=== PATIENT | female | born 1935 | race Caucasian/White ===

== ENCOUNTER 2020-10-12 18:32 | Emergency (ER) | payer OTHER ==
[~2020-10-12] VITALS: Ht 154.9 cm; Wt 59.0 kg
[2020-10-12 18:50] VITALS: BP 166/77
== END 2020-10-12 20:43 | disposition home or self-care (01) ==
LOC: ER 18:32
DX: S02.2XXA Fracture of nasal bones, initial encounter for closed fracture (principal); E78.5 Hyperlipidemia, unspecified; I10 Essential (primary) hypertension; X58.XXXA Exposure to other specified factors, initial encounter; Y93.89 Activity, other specified; Y92.89 Other specified places as the place of occurrence of the external cause; Y99.8 Other external cause status
CPT/HCPCS: 70450; 70486; 72125

== ENCOUNTER 2024-05-13 13:35 | Inpatient (IN) | payer OTHER, MEDICAID ==
[~2024-05-13] VITALS: Ht 152.4 cm; Wt 51.1 kg
[~2024-05-13 13:35] MED LIST: AMLO1TAB23 PO; ATEN50TA PO; ATOR10TA52 PO; FLUO10TA18 PO; LATA0.008 EACHEYE; LEVO112T2 PO; LISI40TA16 PO; TRAZ-227 PO; VALA-30 PO
[2024-05-13 14:55] LABS: Mean Corpuscular Hemoglobin 32.2 pg (28.0-32.0); Mean Corpuscular Hgb Conc. 34.3 g/dL (32.0-36.0); Mean Corpuscular Volume 93.8 fL (80.0-100.0); Red Blood Cells 3.09 10^6/uL (4.0-5.20); Red Cell Distribution Width 16.6 % (11.8-14.3); White Blood Cell 6.1 10^3/uL (4.4-10.8)
[2024-05-13 15:04] LABS: Chloride 104 mmol/L (98-107); Sodium 138 mmol/L (136-145)
[2024-05-13 15:06] LABS: Band Neutrophils % (manual) 0; Basophils % (manual) 0 (0.0-2.0); Blast Cells 0; Eosinophils % (manual) 0 (0-7); Metamyelocytes % 0; Myelocytes % 0; Promyelocytes % 0; Reactive Lymphocytes 0
[2024-05-13 15:08] LABS: Anion Gap 6 (5-15); Carbon Dioxide 28 mmol/L (20-30); Potassium 4.4 mmol/L (3.5-5.1)
[2024-05-13 15:10] LABS: Glucose 99 mg/dL (74-106)
[2024-05-13 15:54] LABS: Lymphocytes % (manual) 46 (10.0-50.0)
[2024-05-13 15:55] LABS: BUN/Creatinine Ratio 33.3 (10.0-20.0); Blood Urea Nitrogen 36 mg/dL (9-23); Large Platelets FEW; Magnesium 2.3 mg/dL (1.6-2.6); Monocytes % (manual) 18 (0-12); Platelet Estimate Adequate
[2024-05-13] MEDS: SODIUM CHLORIDE 0.9% 1,000 ML IV SCH (18:15)
[2024-05-13] MEDS ORDERED: ONDANSETRON HCL 4 MG/2 ML VIAL IV PRN (18:15)
[2024-05-13] MEDS ORDERED: MORPHINE SULFATE INJ 2 MG/ml SYRG IV PRN ×2 (18:15)
[2024-05-13] MEDS ORDERED: NITROGLYCERIN 0.4 MG SL TAB SL PRN (18:15)
[2024-05-13] MEDS ORDERED: HYDROcodone-ACET 5/325MG TAB PO PRN (18:15)
[2024-05-13] MEDS ORDERED: DOCUSATE SOD 100 MG CAP PO PRN (18:15)
[2024-05-13 18:27] VITALS: PULSE 90; RESP 18; O2SAT 96
[2024-05-13] MEDS: ACETAMINOPHEN 325 MG TAB PO PRN (21:48)
[2024-05-13 23:30] VITALS: BP 129/64; PULSE 61; RESP 14; O2SAT 94
[2024-05-14] VITALS (11 sets, daily range): BP systolic 117–145; BP diastolic 53–72; PULSE 61–78; RESP 14–18; TEMP 97.8–98.3; O2SAT 91–98
[2024-05-14 03:28] LABS: Urine Bacteria FEW /hpf (None Seen); Urine Blood Negative /uL (Negative); Urine Clarity Clear (Clear); Urine Color Light-Yellow (Yellow); Urine Mucus FEW (None Seen); Urine Protein, UAD Negative (Negative); Urine Specific Gravity 1.014 (1.001-1.035); Urine Urobilinogen Normal (Negative); Urine WBC 14 /hpf (0 - 5); Urine pH 5.5 (5.0-9.0)
[2024-05-14 04:43] LABS: Hematocrit 26.5 % (36.0-46.0); Hemoglobin 9.1 g/dL (12.2-16.2); Mean Corpuscular Hemoglobin 32.4 pg (28.0-32.0); Mean Corpuscular Hgb Conc. 34.5 g/dL (32.0-36.0); Mean Corpuscular Volume 93.9 fL (80.0-100.0); Red Blood Cells 2.82 10^6/uL (4.0-5.20); Red Cell Distribution Width 16.8 % (11.8-14.3)
[2024-05-14 04:45] LABS: Basophils % (manual) 0 (0.0-2.0); Metamyelocytes % 0; Myelocytes % 0
[2024-05-14 04:46] LABS: Blast Cells 0; Promyelocytes % 0; Reactive Lymphocytes 0
[2024-05-14 04:51] LABS: Alanine Aminotransferase 19 U/L (7-40); Alkaline Phosphatase 120 U/L (46-116); Calcium 9.8 mg/dL (8.7-10.4); Carbon Dioxide 25 mmol/L (20-30); Chloride 104 mmol/L (98-107)
[2024-05-14 04:52] LABS: Albumin 3.1 g/dL (3.2-4.8); Anion Gap 7 (5-15); Aspartate Aminotransferase 18 U/L (13-40); BUN/Creatinine Ratio 36.4 (10.0-20.0); Bilirubin, Total 0.2 mg/dL (0.2-1.0); Blood Urea Nitrogen 32 mg/dL (9-23); Glucose 96 mg/dL (74-106); Potassium 3.9 mmol/L (3.5-5.1); Sodium 136 mmol/L (136-145); Total Protein 9.4 g/dL (5.7-8.2)
[2024-05-14] MEDS: LEVOTHYROXINE SODIUM 112 MCG TAB PO SCH (06:19)
[2024-05-14 07:54] LABS: Band Neutrophils % (manual) 1; Eosinophils % (manual) 1 (0-7); Lymphocytes % (manual) 45 (10.0-50.0); Monocytes % (manual) 14 (0-12)
[2024-05-14 07:55] LABS: Large Platelets FEW; Platelet Estimate Adequa
[2024-05-14] MEDS: amLODIPine BESYLATE 5 MG TAB PO SCH (10:28)
[2024-05-14] MEDS: ATENOLOL 25 MG TAB PO SCH (10:28)
[2024-05-14] MEDS: LISINOPRIL 20 MG TAB PO SCH (10:28)
[2024-05-14] MEDS: ENOXAPARIN SOD 30 MG/0.3 ML SYRINGE SC SCH (10:28)
[2024-05-14] MEDS: VALACYCLOVIR HCL 500 MG TAB PO SCH (10:29)
[2024-05-14] MEDS ORDERED: CEFD300C2 PO (15:58)
[2024-05-15] VITALS (9 sets, daily range): BP systolic 118–125; BP diastolic 50–68; PULSE 66–78; RESP 14–18; TEMP 36.8; O2SAT 90–98
== END 2024-05-15 19:30 | disposition home or self-care (01) | DRG 312 ==
LOC: ER 13:37 → TELE 18:19 → TELE-WESTW 05-14 22:52
PROVIDERS: ADMIT Internal Medicine; ATTEND Internal Medicine
DX: I95.1 Orthostatic hypotension (principal); N39.0 Urinary tract infection, site not specified; S59.901A Unspecified injury of right elbow, initial encounter; D64.9 Anemia, unspecified; E03.9 Hypothyroidism, unspecified; I10 Essential (primary) hypertension; J44.9 Chronic obstructive pulmonary disease, unspecified; F32.A Depression, unspecified; E78.5 Hyperlipidemia, unspecified; G90.9 Disorder of the autonomic nervous system, unspecified; G47.00 Insomnia, unspecified; M25.421 Effusion, right elbow; M70.21 Olecranon bursitis, right elbow; W18.39XA Other fall on same level, initial encounter; Z90.81 Acquired absence of spleen; Z90.710 Acquired absence of both cervix and uterus; Z90.49 Acquired absence of other specified parts of digestive tract; Z85.6 Personal history of leukemia; Y93.89 Activity, other specified; Y92.89 Other specified places as the place of occurrence of the external cause; Y99.8 Other external cause status
CPT/HCPCS: 36415; 70450; 73080; 80048; 80053; 81001; 82962; 83735; 85007; 85027; 93005; 93306; 93886; 96360; 97163; 99291; G0378

== ENCOUNTER 2024-05-18 15:45 | Emergency (ER) | payer OTHER, MEDICAID ==
[~2024-05-18] VITALS: Ht 160 cm; Wt 59.0 kg
[~2024-05-18 15:45] MED LIST changes: +CEFD300C2 PO
[2024-05-18 17:02] LABS: Hemoglobin 9.2 g/dL (12.2-16.2); Mean Corpuscular Hemoglobin 31.8 pg (28.0-32.0); Mean Corpuscular Volume 96.3 fL (80.0-100.0); Red Cell Distribution Width 16.8 % (11.8-14.3)
[2024-05-18 17:06] LABS: Band Neutrophils % (manual) 0; Basophils % (manual) 0 (0.0-2.0); Blast Cells 0; Metamyelocytes % 0; Myelocytes % 0; Promyelocytes % 0; Reactive Lymphocytes 0
[2024-05-18] MEDS: SODIUM CHLORIDE 0.9% 1,000 ML IV ONE (17:08)
[2024-05-18 17:15] LABS: Chloride 101 mmol/L (98-107); Sodium 133 mmol/L (136-145)
[2024-05-18 17:16] LABS: Calcium 9.7 mg/dL (8.7-10.4)
[2024-05-18 17:18] LABS: Anion Gap 9 (5-15); Carbon Dioxide 23 mmol/L (20-30); Potassium 5.1 mmol/L (3.5-5.1)
[2024-05-18 17:21] LABS: Glucose 106 mg/dL (74-106)
[2024-05-18 17:41] LABS: Anisocytosis Slight; Eosinophils % (manual) 1 (0-7); Giant Platelets Few; Lymphocytes % (manual) 23 (10.0-50.0); Macrocytosis Slight; Monocytes % (manual) 20 (0-12); Platelet Estimate Adequate
[2024-05-18 18:00] LABS: BUN/Creatinine Ratio 31.1 (10.0-20.0); Blood Urea Nitrogen 33 mg/dL (9-23)
[2024-05-18 20:00] VITALS: BP 122/60; PULSE 84; RESP 16; TEMP 98; O2SAT 94
== END 2024-05-18 20:20 | disposition home or self-care (01) ==
LOC: ER 15:45 → EDBD 15:45 → ER 20:20
DX: A41.9 Sepsis, unspecified organism (principal); E78.5 Hyperlipidemia, unspecified; I10 Essential (primary) hypertension; Z90.49 Acquired absence of other specified parts of digestive tract; Z90.710 Acquired absence of both cervix and uterus
CPT/HCPCS: 36415; 71045; 80048; 83605; 84484; 85007; 85027; 87040; 93005; 96360; 96361; 99285; J7030

== ENCOUNTER 2024-07-15 11:00 | Inpatient (IN) | payer OTHER, MEDICAID ==
[~2024-07-15] VITALS: Ht 160 cm; Wt 46.9 kg
[2024-07-15 11:54] LABS: Albumin 3.4 g/dL (3.2-4.8); Alkaline Phosphatase 115 U/L (46-116); Anion Gap 8 (5-15); Aspartate Aminotransferase 11 U/L (13-40); Bilirubin, Total 0.3 mg/dL (0.2-1.0); Blood Urea Nitrogen 23 mg/dL (9-23); Calcium 9.8 mg/dL (8.7-10.4); Carbon Dioxide 25 mmol/L (20-31); Chloride 108 mmol/L (98-107); Glucose 137 mg/dL (74-106); Sodium 141 mmol/L (136-145); Total Protein 9.6 g/dL (5.7-8.2)
[2024-07-15 11:55] LABS: Alanine Aminotransferase < 9 U/L (7-40)
[2024-07-15 12:01] VITALS: PULSE 67; RESP 23; O2SAT 99
[2024-07-15] MEDS: FUROSEMIDE 40 MG/4 ML VIAL IV ONE (12:05)
[2024-07-15 12:21] LABS: Hematocrit 27.6 % (36.0-46.0); Mean Corpuscular Hgb Conc. 32.6 g/dL (32.0-36.0); Mean Corpuscular Volume 95.1 fL (80.0-100.0); Platelet Count (auto) 264 10^3/uL (140-450); Red Cell Distribution Width 17.8 % (11.8-14.3); White Blood Cell 7.2 10^3/uL (4.4-10.8)
[2024-07-15 12:22] LABS: Band Neutrophils % (manual) 0; Basophils % (manual) 0 (0.0-2.0); Blast Cells 0; Eosinophils % (manual) 0 (0-7); Metamyelocytes % 0; Myelocytes % 0; Promyelocytes % 0; Reactive Lymphocytes 0
[2024-07-15 12:53] LABS: Lymphocytes % (manual) 29 (10.0-50.0); Monocytes % (manual) 26 (0-12)
[2024-07-15 12:54] LABS: Platelet Estimate Adequate
[2024-07-15 13:05] LABS: Urine Bacteria None Seen /hpf (None Seen)
[2024-07-15] MEDS ORDERED: ONDANSETRON HCL 4 MG/2 ML VIAL IV PRN (13:15)
[2024-07-15] MEDS ORDERED: MORPHINE SULFATE INJ 2 MG/ml SYRG IV PRN ×2 (13:15)
[2024-07-15] MEDS ORDERED: NITROGLYCERIN 0.4 MG SL TAB SL PRN (13:15)
[2024-07-15 13:42] LABS: Urine Blood Negative /uL (Negative); Urine Clarity Clear (Clear); Urine Color Colorless (Yellow); Urine Mucus FEW (None Seen); Urine Protein, UAD Negative (Negative); Urine Specific Gravity 1.008 (1.001-1.035); Urine Urobilinogen Normal (Negative); Urine WBC <1 /hpf (0 - 5)
[2024-07-15 13:59] LABS: INR 1.16 (0.9-1.15); Partial Thromboplastin Time 33.8 SEC (24.5-34.5); Prothrombin Time 12.2 sec (9.3-11.8)
[2024-07-15] MEDS: FUROSEMIDE 20 MG/2 ML VIAL IV SCH (18:00)
[2024-07-15 21:15] VITALS: BP 141/64; PULSE 79; RESP 16; TEMP 98.6; O2SAT 97
[2024-07-15] MEDS: POTASSIUM CHLORIDE 8 MEQ TAB PO SCH (21:52)
[2024-07-15] MEDS: traZODone HCL 50 MG TAB PO SCH (21:52)
[2024-07-15 22:00] VITALS: BP 137/61; PULSE 72; RESP 16; TEMP 98.4; O2SAT 97
[2024-07-15] MEDS: LATANOPROST 0.005 % OPTH(EYE) SOL 2.5ML EACHEYE SCH (22:15)
[2024-07-15 23:38] VITALS: PULSE 79; RESP 16; O2SAT 97
[2024-07-16] VITALS (13 sets, daily range): BP systolic 112–142; BP diastolic 54–76; PULSE 68–94; RESP 16–24; TEMP 98–98.9; O2SAT 95–100
[2024-07-16 05:17] LABS: Chloride 105 mmol/L (98-107); Sodium 140 mmol/L (136-145)
[2024-07-16 05:18] LABS: Anion Gap 9 (5-15); Calcium 9.3 mg/dL (8.7-10.4); Carbon Dioxide 26 mmol/L (20-31)
[2024-07-16 05:23] LABS: Glucose 95 mg/dL (74-106)
[2024-07-16 05:34] LABS: Blood Urea Nitrogen 20 mg/dL (9-23); Potassium 3.5 mmol/L (3.5-5.1)
[2024-07-16] MEDS: LEVOTHYROXINE SODIUM 112 MCG TAB PO SCH (06:33)
[2024-07-16] MEDS: ATENOLOL 25 MG TAB PO SCH (10:00)
[2024-07-16] MEDS ORDERED: ENOXAPARIN SOD 40 MG/0.4 ML SYRINGE SC SCH (10:00)
[2024-07-16] MEDS: VALACYCLOVIR HCL 500 MG TAB PO SCH (10:00)
[2024-07-16] MEDS: FLUoxetine HCL 10 MG CAP PO SCH (10:00)
[2024-07-16] MEDS: methylPREDNISolone SOD SUCC 125 MG/2 ML VL ONE (10:23)
[2024-07-16] MEDS: MELATONIN 5 MG TAB PO ONE (22:28)
[2024-07-17] VITALS (8 sets, daily range): BP systolic 118–135; BP diastolic 56–76; PULSE 68–78; RESP 16–18; TEMP 97.6–98.7; O2SAT 93–96
[2024-07-17 07:34] LABS: Albumin 2.9 g/dL (3.2-4.8); Alkaline Phosphatase 91 U/L (46-116); Anion Gap 6 (5-15); Aspartate Aminotransferase 10 U/L (13-40); BUN/Creatinine Ratio 33.7 (10.0-20.0); Blood Urea Nitrogen 28 mg/dL (9-23); Calcium 9.4 mg/dL (8.7-10.4); Carbon Dioxide 28 mmol/L (20-31); Chloride 105 mmol/L (98-107); Glucose 138 mg/dL (74-106); Potassium 4.1 mmol/L (3.5-5.1); Sodium 139 mmol/L (136-145)
[2024-07-17 07:35] LABS: Alanine Aminotransferase < 9 U/L (7-40); Bilirubin, Total 0.3 mg/dL (0.2-1.0); Total Protein 8.5 g/dL (5.7-8.2)
[2024-07-17] MEDS: ENOXAPARIN SOD 40 MG/0.4 ML SYRINGE SC SCH (10:55)
[2024-07-17] MEDS: methylPREDNISolone SOD SUCC 125 MG/2 ML VL IV ONE (17:15)
[2024-07-17] MEDS: diphenhdrAMINE HCL 50 MG/1 ML VL IV ONE (18:09)
[2024-07-17] MEDS: MELATONIN 5 MG TAB PO PRN (21:32)
[2024-07-18] VITALS (8 sets, daily range): BP systolic 114–140; BP diastolic 58–72; PULSE 60–80; RESP 16–20; TEMP 97.6–98.2; O2SAT 91–99
[2024-07-18 07:31] LABS: INR 1.13 (0.9-1.15); Partial Thromboplastin Time 29.6 SEC (24.5-34.5); Prothrombin Time 11.9 sec (9.3-11.8)
[2024-07-19] VITALS (8 sets, daily range): BP systolic 115–144; BP diastolic 60–72; PULSE 57–93; RESP 17–19; TEMP 97.5–98.9; O2SAT 88–97
[2024-07-20] VITALS (8 sets, daily range): BP systolic 100–136; BP diastolic 50–69; PULSE 52–74; RESP 16–17; TEMP 97.5–98.4; O2SAT 92–98
[2024-07-20] MEDS: HEPARIN SODIUM (PORCINE) 5000 UNITS/ML 1ML VIAL ONE (07:49)
[2024-07-20] MEDS: fentaNYL CITRATE 100 MCG/2 ML VL ONE (07:49)
[2024-07-20] MEDS: LIDOCAINE 2%HCL (LOCAL ANESTH.) INJ 20ML MDV ONE (07:50)
[2024-07-20] MEDS: MIDAZOLAM HCL 2MG/2ML 2ml VIAL (1mg/ml) ONE (07:50)
[2024-07-20] MEDS: IOHEXOL 350 MG/ML 100ML IJ ONE (07:51)
[2024-07-20] MEDS: diphenhdrAMINE HCL 50 MG/1 ML VL ONE (07:51)
[2024-07-20] MEDS: VERAPAMIL 2.5MG/ML INJ 2ML VIAL IV ONE (07:51)
[2024-07-20 16:10] LABS: Hematocrit 27.1 % (36.0-46.0); Hemoglobin 9.1 g/dL (12.2-16.2); Mean Corpuscular Hemoglobin 31.7 pg (28.0-32.0); Mean Corpuscular Hgb Conc. 33.7 g/dL (32.0-36.0); Mean Corpuscular Volume 94.1 fL (80.0-100.0); Platelet Count (auto) 240 10^3/uL (140-450); Red Blood Cells 2.88 10^6/uL (4.0-5.20); Red Cell Distribution Width 17.7 % (11.8-14.3); White Blood Cell 5.5 10^3/uL (4.4-10.8)
[2024-07-20 16:14] LABS: Chloride 98 mmol/L (98-107); Sodium 135 mmol/L (136-145)
[2024-07-20 16:15] LABS: Anion Gap 4 (5-15); Carbon Dioxide 33 mmol/L (20-31)
[2024-07-20 16:18] LABS: Basophils % (manual) 0 (0.0-2.0); Blast Cells 0; Eosinophils % (manual) 0 (0-7); Metamyelocytes % 0; Myelocytes % 0; Promyelocytes % 0; Reactive Lymphocytes 0
[2024-07-20 16:20] LABS: Glucose 127 mg/dL (74-106)
[2024-07-20] MEDS ORDERED: FURO1TAB31 PO (16:36)
[2024-07-20] MEDS ORDERED: POTA-215 PO (16:36)
[2024-07-20 16:53] LABS: BUN/Creatinine Ratio 26.4 (10.0-20.0); Blood Urea Nitrogen 33 mg/dL (9-23)
[2024-07-20 17:51] LABS: Band Neutrophils % (manual) 1; Lymphocytes % (manual) 45 (10.0-50.0)
[2024-07-20 17:53] LABS: Large Platelets FEW; Monocytes % (manual) 18 (0-12); Platelet Estimate Adequate
[2024-07-21] MEDS ORDERED: ENOXAPARIN SOD 30 MG/0.3 ML SYRINGE SC SCH (10:00)
== END 2024-07-20 20:36 | disposition home or self-care (01) | DRG 286 ==
LOC: ER 11:00 → EDBD 11:00 → TELE 13:04 → TELE-WESTW 21:11
PROVIDERS: ADMIT Hospitalist; ATTEND Hospitalist
PROC: 4A023N7 Measurement of Cardiac Sampling and Pressure, Left Heart, Percutaneous Approach (ICD-10-PCS; principal; 2024-07-16)
PROC: B211YZZ Fluoroscopy of Multiple Coronary Arteries using Other Contrast (ICD-10-PCS; 2024-07-16)
PROC: B215YZZ Fluoroscopy of Left Heart using Other Contrast (ICD-10-PCS; 2024-07-16)
DX: I11.0 Hypertensive heart disease with heart failure (principal); I50.33 Acute on chronic diastolic (congestive) heart failure; J96.21 Acute and chronic respiratory failure with hypoxia; J98.11 Atelectasis; K21.9 Gastro-esophageal reflux disease without esophagitis; J44.9 Chronic obstructive pulmonary disease, unspecified; D64.9 Anemia, unspecified; E86.0 Dehydration; I07.1 Rheumatic tricuspid insufficiency; E03.9 Hypothyroidism, unspecified; E78.5 Hyperlipidemia, unspecified; I50.82 Biventricular heart failure; F51.04 Psychophysiologic insomnia; R04.0 Epistaxis; Z90.49 Acquired absence of other specified parts of digestive tract; Z90.710 Acquired absence of both cervix and uterus; Z88.0 Allergy status to penicillin; Z82.49 Family history of ischemic heart disease and other diseases of the circulatory system; Z99.81 Dependence on supplemental oxygen
CPT/HCPCS: 36415; 71045; 71250; 71275; 80048; 80053; 81001; 83735; 83880; 84484; 85007; 85027; 85610; 85730; 93005; 93306; 93458; 93970; 96374; 97163; 99152; 99291; G0378; J2250

== ENCOUNTER 2024-11-26 20:47 | Emergency (ER) | payer OTHER, MEDICAID ==
[~2024-11-26] VITALS: Ht 152.4 cm; Wt 48.7 kg
[~2024-11-26 20:47] MED LIST changes: -CEFD300C2 PO; +FURO1TAB31 PO; +POTA-215 PO; -VALA-30 PO
[2024-11-26 21:54] VITALS: BP 145/79; PULSE 83; RESP 18; TEMP 97.4; O2SAT 98
[2024-11-26] MEDS ORDERED: ACET500T58 PO (22:39)
--- NOTE | 2024-11-26 22:39 | ED.PDOC ---
Musculoskeletal HPI Comments 89-YEAR-OLD FEMALE PRESENTS TO ER WITH COMPLAINTS OF FALL INJURY X1 DAY. PATIENT REPORTS THAT SHE "TWISTED" HER RIGHT KNEE DURING A MECHANICAL TRIP AND FALL WHILE WALKING DOWN HER DRIVEWAY AT 11:30 AM PRIOR TO ARRIVAL TO ER AND LANDED ON HER BUTTOCKS ONTO CEMENT AND HAS SINCE BEEN EXPERIENCING 8/10 PAIN TO RIGHT KNEE WITH ASSOCIATED SWELLING TO RIGHT KNEE. DENIES HEAD INJURY/LOC. DENIES USE OF MEDICATIONS FOR CURRENT SYMPTOMS. PATIENT PRESENTS TO ER AMBULATORY ON ARRIVAL, WITH USE OF WALKER, ALERT AND ORIENTED X4, IN NO DISTRESS AND STATES SHE DOES HAVE HISTORY OF A RIGHT KNEE REPLACEMENT IN 2009. DENIES HIP/PELVIC PAIN, TIB-FIB PAIN, NUMBNESS/TINGLING, ABDOMINAL PAIN, HEADACHE, NECK PAIN, NAUSEA/VOMITING OR ANY FURTHER SYMPTOMS/COMPLAINTS Chief Complaint: Fall Injury Time Seen by MD: 21:44 Primary Care Provider: MARINO Reviewed Notes: Nurses Notes, Medications, Allergies Allergies: Coded Allergies: Iodine (Verified Allergy, Unknown, 07/15/24) Penicillins (Verified Allergy, Unknown, 07/15/24) Sulfa Antibiotics (Verified Allergy, Unknown, 07/15/24) Home Meds Active Scripts Acetaminophen (Acetaminophen) 500 Mg Tab, 500 MG PO Q4HPRN, #30 TAB 0 Refills Prov:VIRGILIO WATTERS 11/26/24 Potassium Chloride (Klor-Con M10) 10 Meq Tab, 1 TAB PO DAILY, #30 TAB 5 Refills Prov:NIRMALA GARVEY MD 07/20/24 Furosemide (Lasix) 40 Mg Tab, 40 MG PO DAILY, #30 TAB Prov:NIRMALA GARVEY MD 07/20/24 Reported Medications Fluoxetine Hcl (Fluoxetine Hcl) 10 Mg Tab, 1 CAP PO DAILY 12/06/23 Lisinopril (Lisinopril) 40 Mg Tab, 1 TAB PO DAILY 12/06/23 Amlodipine Besylate (Amlodipine Besylate) 10 Mg Tab, 1 TAB PO DAILY 12/06/23 Trazodone Hcl (Trazodone Hcl) 50 Mg Tab, 1 TAB PO 12/06/23 Atorvastatin Calcium (ATORVASTATIN CALCIUM) 10 Mg Tab, 0.5 TAB PO 12/06/23 Latanoprost (LATANOPROST) 0.005 % [place], 1 DROP EACHEYE 12/06/23 Atenolol (Atenolol) 50 Mg Tab, 1 TAB PO DAILY 12/06/23 Levothyroxine Sodium (Synthroid) 112 Mcg Tab, 1 TAB PO DAILY 12/06/23 Information Source: Patient Mode of Arrival: Ambulatory Past Medical History PAST MEDICAL HISTORY: Cancer, COPD, Depression, GERD, High Lipids, HTN, Thyroid Surgical History: Appendectomy, Cholecystectomy, Hysterectomy, Tonsillectomy Surgical History (Other): RIGHT KNEE REPLACEMENT-2009 [employer] History: No Pertinent [employer] History Family History Family History: No family hx of Cancer, No family hx of DM, No family hx of Heart rohan Social History Smoker: Non-Smoker Alcohol: Denies ETOH Use Drugs: Denies Drug Use Lives In: Home Constitutional: denies: chills, diaphoresis, fatigue, fever, malaise, sweats, weakness, others EENTM: denies: blurred vision, double vision, ear bleeding, ear discharge, ear drainage, ear pain, ear ringing, eye pain, eye redness, hearing loss, mouth pain, mouth swelling, nasal discharge, nose bleeding, nose congestion, nose pain, photophobia, tearing, throat pain, throat swelling, voice changes, others Respiratory: denies: cough, hemoptysis, orthopnea, SOB at rest, shortness of breath, SOB with excertion, stridor, wheezing, others Cardiovascular: denies: chest pain, dizzy spells, diaphoresis, Dyspnea on exertion, edema, irregular heart beat, left arm pain, lightheadedness, palpitations, PND, syncope, others Gastrointestinal: denies: abdomen distended, abdominal pain, blood streaked bowels, constipated, diarrhea, dysphagia, difficulty swallowing, hematemesis, melena, nausea, poor appetite, poor fluid intake, rectal bleeding, rectal pain, vomiting, others Genitourinary: denies: abnormal vagina bleeding, burning, dyspareunia, dysuria, flank pain, frequency, hematuria, incontinence, pain, , vagina discharge, urgency, others Neurological: denies: dizziness, fainting, headache, left sided numbness, left sided weakness, numbness, paresthesia, pre-existing deficit, right sided numbness, right sided weakness, seizure, speech problems, tingling, tremors, weakness, others Musculoskeletal: reports: others ( STATED IN HPI) Integumetry: reports: others ( STATED IN HPI) Allergic/Immunocompromised: denies: Difficulty Healing, Frequent Infections, Hives, Itching, others Hematologic/Lymphatic: denies: anemia, blood clots, easy bleeding, easy bruising, swollen glands, others Endocrine: denies: excessive hunger, excessive sweating, excessive thirst, excessive urination, flushing, intolerance to cold, intolerance to heat, unexplained weight gain, unexplained weight loss, others Psychiatric: denies: anxiety, bipolar disorder, depression, hopeless, panic disorder, schizophrenia, sleepless, suicidal, others Physical Exam General Appearance: No Apparent Distress HEENT: PERRL/EOMI, Pharynx Normal, TMs Normal Neck: Full Range of Motion, Non-Tender, Normal Respiratory: Chest Non-Tender, Lungs Clear, No Accessory Muscle Use, No Respiratory Distress, Normal Breath Sounds Cardiovascular: No Murmur, No Gallop, Regular Rate/Rhythm Breast Exam: Deferred Gastrointestinal: NOT DONE Genitalia: Deferred Pelvic: Deferred Rectal: Deferred Extremities: No calf tenderness, Normal capillary refill Musculoskeletal : Extremity Location: Knee (MODERATE SWELLING NOTED TO RIGHT KNEE WITH TTP NOTED TO RIGHT MEDIAL FEMORAL CONDYLE. SCAR NOTED FROM PREVIOUS RIGHT KNEE REPLACEMENT SURGERY. NO DEFORMITY/FURTHER SKIN CHANGES NOTED. NO OTHER TTP TO RIGHT LOWER EXTREMITY NOTED. PULSES INTACT. GAIT SLOWED WITH USE OF WALKER) Neurologic: Alert, latexer II-XII nml as Tested, No Motor Deficits, Normal Affect, Normal Mood, No Sensory Deficits Cerebellar Function: Normal Reflexes: Normal Skin: Dry, Normal Color, Warm Peripheral Pulses: 2+ femoral (R), 2+ femoral (L), 2+ dorsalis pedis (R), 2+ dorsalis pedis (L), 2+ Radial (R), 2+ Radial (L), 2+ Brachial (R), 2+ Brachial (L) Lymphatic: No Adenopathy Was a procedure done? Was a procedure done?: No Sedation Sedation?: No Differential Diagnosis EXT Differential Diagnosis: Dislocation, Laceration, Neurovascular injury X-Ray, Labs, Meds, VS Vital Signs Date Time Temp Pulse Resp B/P (MAP) Pulse Ox O2 Delivery O2 Flow Rate FiO2 11/26/24 21:54 Room Air 11/26/24 21:54 97.4 83 18 145/79 (101) 98 11/26/24 21:54 97.4 83 18 145/79 (101) 98 97.4 Current Medications Medications (Trade) Dose Ordered Sig/Bear Route Start Time Stop Time Status Last Admin Acetaminophen/ Hydrocodone Bitart ([place] 5/325MG Tab) 1 tab ONCE ONCE PO 11/26/24 22:30 11/26/24 22:31 DC 11/26/24 22:45 Ondansetron HCl (Zofran Po) 4 mg ONCE ONCE PO 11/26/24 22:30 11/26/24 22:31 DC 11/26/24 22:44 PATIENT: TIEN KWAN LACCT: [id number]: [id number] : 1935 LOC: ER ROOM / BED: / AGE / SEX: 89 / F ADM STATUS: REG ER SERVICE 41 ORDERING PHYSICIAN: VIRGILIO WATTERS PROCEDURE(s): RKNCT - CT R KNEE WO CONTRAST REASON: RIGHT KNEE PAIN, R/O ACUTE FRACTURE ORDER NUMBER(s): [id number], ACCESSION NUMBER(s): [id number] EXAM: CT CT R KNEE WO CONTRAST INDICATION: RIGHT KNEE PAIN, R/O ACUTE FRACTURE Exam Date: 11/26/2024 10:45 PM COMPARISON: None TECHNIQUE: CT of the neck with intravenous contrast. RADIATION DOSE: CTDIvol: 8 mGy, DLP: 216 mGy*cm Findings/ IMPRESSION: Status post total left knee arthroplasty with intact appearing orthopedic hardware. Acute vertical fracture through the medial femoral condyle. Moderate knee joint effusion. ATED BY: ABIGAIL RUBIO DO DICTATED DATE/TIME: 11/26/242328 SIGNED BY: ABIGAIL RUBIO DO SIGNED DATE/TIME: 11/26/242328 CC: PATIENT: TIEN KWAN ACCT: [id number] UNIT: [id number] : 1935 LOC: ER ROOM / BED: / AGE / SEX: 89 / F ADM STATUS: REG ER SERVICE 44 ORDERING PHYSICIAN: VIRGILIO WATTERS PROCEDURE(s): RKN3 - R KNEE 3V XRAY REASON: S/P Fall, Swelling ORDER NUMBER(s): [id number], ACCESSION NUMBER(s): [id number] EXAM: XY R KNEE 3V XRAY HISTORY: S/P Fall, Swelling COMPARISON: None TECHNIQUE: 3 views of the right knee were performed. Findings/ IMPRESSION: Status post total right knee arthroplasty with intact appearing orthopedic hardware. Fracture through the medial femoral condyle of unknown chronicity but may represent an acute fracture. Diffuse soft tissue edema. ATED BY: ABIGAIL RUBIO DO DICTATED DATE/TIME: 11/26/242237 SIGNED BY: ABIGAIL RUBIO DO SIGNED DATE/TIME: 11/26/242237 CC: RIGHT KNEE X-RAY REVIEWED CT R KNEE W/O CONTRAST REVIEWED [place] 5/325 MG P.O. ORDERED ZOFRAN 4 MG P.O. ORDERED RIGHT KNEE IMMOBILIZER APPLIED PATIENT REPORTED IMPROVEMENT IN SYMPTOMS, NEUROVASCULARLY INTACT AND IN NO DISTRESS PRIOR TO DISCHARGE ADVISED ON REST/NO STRENUOUS ACTIVITY, ELEVATION AND ALTERNATE ICE ON/OFF NEEDED FOR PAIN/SWELLING ADVISED ON CONTINUED USE OF WALKER AT ALL TIMES PATIENT PROVIDED COPY OF CT IMAGING REPORT CASE/IMAGING REVIEWED AND DISCUSSED WITH DR. MURO WHO'S AGREEABLE WITH DISCHARGE/FOLLOW-UP CARE ADVISED TO FOLLOW UP WITH PCP AND ORTHOPEDICS IN 1-2 DAYS PATIENT AND PATIENT'S SON VERBALIZED UNDERSTANDING AND AGREEABLE WITH CURRENT PLAN OF CARE ADVISED TO RETURN TO ER IMMEDIATELY IF SYMPTOMS WORSEN Images Reviewed?: Images reviewed and evaluated by me Time of 1ST Reevaluation: 22:32 Reevaluation 1ST: N/A Time of 2ND Reevaluation: 23:40 Reevaluation 2ND: Improved Patient Education/Counseling: Diagnosis, Treatment, Prognosis, Need For Follow Up Family Education/Counseling: Diagnosis, Treatment, Prognosis, Need For Follow Up Departure 1 Departure Time of Disposition: 23:44 Impression: Primary Impression: Knee fracture, right Disposition: 01 HOME / SELF CARE / HOMELESS Condition: Stable e-Prescriptions Hydrocodone-Acetaminophen (Hydrocodone Bitartrate/AC 5-325 mg) 1 Tab Tab 1 TAB PO Q6HPRN, #10 TAB 0 Refills Prov: VIRGILIO WATTERS 11/26/24 Discharged With: Other (SON) Critical Care Note Critical Care Time?: No Stability Stability form required: No Heart Score Heart Score: Heart Score Response (Comments) Value History N/A 0 EKG N/A 0 Age N/A 0 Risk Factors N/A 0 Troponin N/A 0 Total 0 VIRGILIO WATTERS Nov 26, 2024 22:39
[2024-11-26] MEDS: ONDANSETRON ODT 4 MG TAB PO ONE (22:44)
[2024-11-26] MEDS: HYDROcodone-ACET 5/325MG TAB PO ONE (22:45)
--- NOTE | 2024-11-26 23:32 | DVH ---
EXAM: CT CT R KNEE WO CONTRAST INDICATION: RIGHT KNEE PAIN, R/O ACUTE FRACTURE Exam Date: 11/26/2024 10:45 PM COMPARISON: None TECHNIQUE: CT of the neck with intravenous contrast. RADIATION DOSE: CTDIvol: 8 mGy, DLP: 216 mGy*cm Findings/ IMPRESSION: Status post total left knee arthroplasty with intact appearing orthopedic hardware. Acute vertical f racture through the medial femoral condyle. Moderate knee joint effusion.
[2024-11-26] MEDS ORDERED: HYDR-4902 PO (23:42)
== END 2024-11-27 00:51 | disposition home or self-care (01) ==
LOC: ER 20:47
DX: S82.001A Unspecified fracture of right patella, initial encounter for closed fracture (principal); F32.A Depression, unspecified; J44.9 Chronic obstructive pulmonary disease, unspecified; I10 Essential (primary) hypertension; K21.9 Gastro-esophageal reflux disease without esophagitis; E78.5 Hyperlipidemia, unspecified; Z90.49 Acquired absence of other specified parts of digestive tract; Z90.710 Acquired absence of both cervix and uterus; Z96.653 Presence of artificial knee joint, bilateral; Z88.0 Allergy status to penicillin; Z88.2 Allergy status to sulfonamides; Z91.040 Latex allergy status; W01.0XXA Fall on same level from slipping, tripping and stumbling without subsequent striking against object, initial encounter; Y93.01 Activity, walking, marching and hiking; Y92.89 Other specified places as the place of occurrence of the external cause; Y99.8 Other external cause status
CPT/HCPCS: 29505; 73562; 73700; 99284; Q0162